=== PATIENT | female | born 1980 | race Caucasian/White ===

== ENCOUNTER 2018-06-30 05:45 | Emergency (ER) | payer OTHER ==
[~2018-06-30] VITALS: Ht 170.2 cm; Wt 56.8 kg
[2018-06-30] MEDS ORDERED: LEVALBUTEROL (NEB) 1.25 MG/0.5 ML AMP INH STA (05:51)
[2018-06-30] MEDS ORDERED: IPRATROPIUM (NEB) 0.5 MG/2.5 ML AMP INH STA (05:51)
[2018-06-30 05:52] VITALS: Ht 170.2 cm; Wt 56.8 kg
--- NOTE | 2018-06-30 06:08 | ERD ---
ER Documentation Chief Complaint Chief Complaint BIB RA39 for SOB HPI 38-year-old female with a history of asthma, occasional ED visits but no admissions or intubations presents to the ED by rescue ambulance complaining of a 1 day history of nonspecific URI symptoms with rhinorrhea, productive cough, body aches, chest tightness, shortness of breath and wheezing. No palpitations. No abdominal pain, nausea, vomiting, diarrhea or constipation. Denies leg pain or swelling. No headache, neck or back pain. No dysuria or polyuria. Subjective fevers but no chills. ROS All systems reviewed and are negative except as per history of present illness. Medications Home Meds Active Scripts Prednisone* (Prednisone*) 20 Mg Tab, 40 MG PO DAILY for 5 Days, #5 TAB Prov:DELROY RAJAN MD 06/30/18 Allergies Allergies: Coded Allergies: No Known Allergy (Unverified , 06/30/18) PMhx/Soc Reviewed in chart. As per HPI. History of Surgery: No Anesthesia Reaction: No Hx Neurological Disorder: No Hx Respiratory Disorders: Yes (Asthma) Hx Cardiac Disorders: No Hx Psychiatric Problems: No Hx Miscellaneous Medical Probl: No Hx Alcohol Use: Yes (once in a while) Hx Substance Use: No Hx Tobacco Use: No Smoking Status: Never smoker FmHx No sudden cardiac or cancer Physical Exam Vitals Temp: 98.3. Blood pressure: 125/90. Pulse: 107. Respirations: 25. O2 saturation 100% on high flow oxygen. Physical Exam Const: No acute distress Head: Atraumatic Eyes: Normal Conjunctiva ENT: Normal External Ears, Nose and Mouth. Neck: Full range of motion. No meningismus. Resp: Clear to auscultation bilaterally Cardio: Regular rate and rhythm, no murmurs Abd: Soft, non tender, non distended. Normal bowel sounds Skin: No petechiae or rashes Back: No midline or flank tenderness Ext: No cyanosis, or edema Neur: Awake and alert Psych: Normal Mood and Affect Results 24 hrs Laboratory Tests Test 06/30/18 05:50 06/30/18 05:51 06/30/18 06:10 06/30/18 09:11 POC Venous 2.7 mmol/L 3.8 mmol/L Lactate Blood Gas Blood arterial Specimen Source Arterial Blood 06/30/2018 6:22 Date Drawn :16 AM Arterial Blood 7.426 pH (Temp corrected ) Arterial Blood 30.3 mmhg pCO2 (Temp correct) Arterial Blood 208.2 mmHG pO2 (Temp corrected ) Arterial Blood 19.5 mmol/L HCO3 Arterial Blood -3.8 mmol/L Base Excess Arterial Blood 99.2 mmHG Oxygen Saturati on Christiano Test ACCEPTAB Arterial Blood Right Radial Gas Puncture Site Arterial 0.3 % Blood Carboxyhe moglobin Arterial Blood 0.2 % Methemoglobin Blood Gas A-a 35.0 mmHg O2 Differential Oxyhemoglobin 98.7 % Percent Blood Gas 37.0 C Temperature Blood Gas NASAL CANNULA Modality FiO2 39.0 % Blood Gas Notified Whom Blood Gas 06/30/2018 6:30 Notified Time :53 AM White Blood 12.3 10^3/ul Count Red Blood Count 4.40 10^6/ul Hemoglobin 13.3 g/dl Hematocrit 39.5 % Mean 89.8 fl Corpuscular Volume Mean 30.2 pg Corpuscular Hemoglobin Mean 33.7 g/dl Corpuscular Hemoglobin Conc ent Red Cell 12.7 % Distribution Width Platelet Count 224 10^3/UL Mean Platelet 10.8 fl Volume Immature 0.200 % Granulocytes % Neutrophils % 78.5 % Lymphocytes % 10.5 % Monocytes % 4.0 % Eosinophils % 6.3 % Basophils % 0.5 % Nucleated Red 0.0 /100WBC Blood Cells % Immature 0.030 10^3/ul Granulocytes # Neutrophils # 9.6 10^3/ul Lymphocytes # 1.3 10^3/ul Monocytes # 0.5 10^3/ul Eosinophils # 0.8 10^3/ul Basophils # 0.1 10^3/ul Nucleated Red 0.0 10^3/ul Blood Cells # Sodium Level 142 mmol/L Potassium Level 3.0 mmol/L Chloride Level 108 mmol/L Carbon Dioxide 22 mmol/L Level Anion Gap 12 Blood Urea 14 mg/dl Nitrogen Creatinine 0.60 mg/dl Est Glomerular > 60 mL/min Filtrat Rate mL/min Glucose Level 159 mg/dl Calcium Level 8.8 mg/dl Test 06/30/18 09:38 06/30/18 10:30 06/30/18 11:10 Lactic Acid 4.4 mmol/L 5.0 mmol/L Level Urine Color COLORLESS Urine Clarity CLEAR Urine pH 5.0 Urine Specific 1.002 [place] Urine Ketones NEGATIVE mg/dL Urine Nitrite NEGATIVE mg/dL Urine Bilirubin NEGATIVE mg/dL Urine NEGATIVE mg/dL Urobilinogen Urine Leukocyte NEGATIVE Gerardo/ul Esterase Urine NEGATIVE mg/dL Hemoglobin Urine Glucose 1+ mg/dL Urine Total NEGATIVE mg/dl Protein Current Medications Medications Dose Sig/Aurelia Start Time Status Last (Trade) Ordered Route PRN Stop Time Admin Dose Reason Admin 5 mg ONCE STAT 06/30/18 DC 06/30/18 Levalbuterol INH 05:51 05:58 (Xopenex 06/30/18 Neb) 05:52 Ipratropium 1 mg ONCE STAT 06/30/18 DC 06/30/18 [place] INH 05:51 05:57 (Atrovent 06/30/18 0.02% 05:52 (Neb)) 125 mg ONCE STAT 06/30/18 DC 06/30/18 Methylprednis IV 06:14 06:19 olone Sodium 06/30/18 Succinate 06:16 (Solu-Medrol) Albuterol 15 mg ONCE STAT 06/30/18 DC 06/30/18 (Proventil INH 06:14 07:48 0.5% (Neb)) 06/30/18 06:16 Sodium 1,700 ml BOLUS OVER 2 06/30/18 DC 06/30/18 Chloride HOURS STAT 06:14 06:19 (NS) IV* 06/30/18 06:16 Potassium 40 meq ONCE ONCE 06/30/18 DC 06/30/18 Chlor[place] PO 07:30 07:39 (Potassium 06/30/18 Chloride 07:50 Pwd/Soln) Sodium 1,700 ml BOLUS OVER 2 06/30/18 DC 06/30/18 Chloride HOURS STAT 09:18 09:33 (NS) IV* 06/30/18 09:20 Ondansetron 4 mg BRIDGE ORDER 06/30/18 DC HCl (Zofran PRN IV 14:00 Inj) NAUSEA AND/OR 06/30/18 VOMITING 15:46 650 mg ER BRIDGE 06/30/18 DC Acetaminophen PRN PO MILD 14:00 (Tylenol PAIN(1-3)OR 06/30/18 Tab) ELEVATED TEMP 15:46 Procedures/MDM DOCUMENTS REVIEWED: ED nurse, EMS report, no prior records EKG: Time: 52. Sinus tachycardia. Ventricular rate 106. Normal NV and QRS. No ST segment elevation or depression. No ectopy. My Interpretation IMAGING: Chest AP portable. Cardiac silhouette is normal. The costophrenic angles are clear. No mediastinal widening. No effusions or infiltrates. My interpretation. REEXAMINATION/REEVALUATION: Time: 06:30. Patient reports ongoing shortness of breath. Increasing breath sounds with mild residual expiratory wheezing. CRITICAL CARE TIME: Due to the high probability of sudden clinically significant respiratory and hemodynamic deterioration, this patient with shortness of breath during acute asthma exacerbation required multiple, frequent reevaluations of vital signs and response to therapy. Additional critical care time was spent in obtaining supplemental history from EMS, interpretation of relevant clinical data including labs, x-ray and EKG. TOTAL CRITICAL CARE TIME: 35 minutes not including other separately reportable procedures. MEDICAL DECISION MAKIN-year-old female with a history of asthma, occasional ED visits but no admissions or intubations presents to the ED by rescue ambulance complaining of a 1 day history of nonspecific URI symptoms with rhinorrhea, productive cough, body aches, chest tightness, shortness of breath and wheezing. CBC significant for mild leukocytosis but no anemia or thrombocytopenia. Chemistry reveals hypokalemia but no renal insufficiency or hyperglycemia. EKG shows sinus tachycardia but no ischemic changes or ectopy. Chest x-ray without infiltrate, effusion or signs of pneumonia or congestive heart failure. Patient presents with acute asthma exacerbation likely secondary to nonspecific viral URI, resolved with nebulized beta agonists and intravenous corticosteroids. Chest tightness which is typical of her asthma exacerbation. No radiographic evidence of pneumonia or pneumothorax. Low risk for pulmonary embolism. Acute coronary syndrome is unlikely. Heart score is 0. Patient observed in the ED for over 5 hours. Increasing lactic acidosis despite normal saline 30 cc fluid bolus x2, likely secondary to acute asthma exacerbation. Systemic inflammatory response syndrome but no source of infection hence an tibiotics are not administered. Influenza is negative. Considering the patient's rising lactic acid admission for further evaluation and management is advised. Care was transferred to Dr. Rajan at 14:45. Departure Diagnosis: Primary Impression: Shortness of breath Additional Impressions: Acute asthma exacerbation Asthma severity: moderate Asthma persistence: unspecified Qualified Codes: J45.901 - Unspecified asthma with (acute) exacerbation Lactic acidosis Nonspecific syndrome suggestive of viral illness Condition: Serious HERNANDEZ COTTRELL MD Jun 30, 2018 06:08
[2018-06-30] MEDS ORDERED: SODIUM CHLORIDE 0.9% 1L BAG IV* STA ×2 (06:14→09:18)
[2018-06-30] MEDS ORDERED: METHYLPREDNISOLONE 125 MG INJ IV STA (06:14)
[2018-06-30] MEDS ORDERED: ALBUTEROL 0.5% (NEB) 2.5 MG/0.5 ML AMP INH STA (06:14)
[2018-06-30] MEDS ORDERED: POTASSIUM CHLORIDE 20 MEQ POWDER FOR ORAL SOLN PO ONE (07:30)
[2018-06-30] MEDS ORDERED: ONDANSETRON 4 MG INJ IV PRN (14:00)
[2018-06-30] MEDS ORDERED: ACETAMINOPHEN 325 MG TAB PO PRN (14:00)
[2018-06-30 14:51] VITALS: BP 118/71; PULSE 96; RESP 20
[2018-06-30] MEDS ORDERED: PRED20TA PO (14:59)
--- NOTE | 2018-06-30 15:03 | PDOCDIS ---
Discharge Instructions DIAGNOSIS Discharge Diagnosis Upper respiratory infection. Acute asthma exacerbation CONDITION [id number] Patient Condition: [id number] Good HOME CARE INSTRUCTIONS: [id number] Diet Instructions: [id number] Regular ACTIVITY: [id number] Activity Restrictions: [id number] No Restrictions FOLLOW UP/APPOINTMENTS Follow-up Plan 1. Take all medications as prescribed. 2. Finish a five day course of oral prednisone to reduce the risk of further exacerbation. 3. Continue to take albuterol inhaler as needed for shortness of breath. 4. See your primary care doctor in 1 week. 5. For worsening shortness of breath or cough that does not improve after inhaler, return to the emergency room. DELROY RAJAN MD Jun 30, 2018 15:03
--- NOTE | 2018-06-30 15:13 | CONS ---
Date/Time of Note Date/Time of Note DATE: 06/30/18 TIME: 15:03 Assessment/Plan Assessment/Plan Hospital Course In the emergency room she was tachy to 110s, saturating 95% on room air. She was given atrovent/xopinex at 6:00 then albuterol at 8:00. Also solumedrol IV. Chest XR was clear with no infiltrates. Flu swab negative. UA negative for infection. She was also hypokalemic to 3.0 and got PO replacement. Of note, her lactate was drawn on admission and uptrended to 5.0 at time of discharge. When I saw the patient around 14:00 she was walking, breathing comfortably on room air, and politely requested to go home. Assessment/Plan 38 yo woman with acute asthma exacerbation. #Asthma exacerbation - s/p JOSELO and antimuscarininc. - IV solumdrol in ED, will prescribe 5 day course of prednisone 40 mg daily. - Gave patient return precautions for ED. #Lactic acidosis - Lactic acid >2 on admission and uptrended to 5 in the ED. - There is no evidence of sepsis from a bacterial infection: CXR clear of infiltrates, she has no dysuria, no fevers, she does have throat pain but CENTOR criteria is 0 meaning no workup for strep throat is indicated. - In the absence of sepsis, the prognostic value of lactate is unclear. - Given her reassuring history and exam, I believe this patient is appropriate for discharge with strict return instructions if her condition worsens. Result Diagram: 06/30/18 0610 06/30/18 0610 Consultation Date/Type/Reason Admit Date/Time Jun 30, 2018 Date of Consultation: Jun 30, 2018 Type of Consult Internal Medicine Reason for Consultation Acute asthma exacerbation Requesting Provider: HERNANDEZ COTTRELL MD Hx of Present Illness Ms. Nazario is a 38 yo woman with asthma who presents with acute exacerbation. She was in her usual state of health until yesterday; when she developed dry cough and chills. Her children have been sick with what sounds like an upper respiratory infection. She also had nausea and anorexia and sore throat. Last night she woke up coughing with shortness of breath, she used her inhaler 6 t imes but with no relief of dyspnea. So she presented to ED. She was diagnosed with asthma about 4-6 years ago and is on albuterol inhaler prn. She takes it very rarely. Last exacerbation was in July this year, she presented to the emergency room but was not admitted. Has never required intubation. Denies fever, headache, dizziness, vision changes, productive cough, chest pain/pressure/palpitations, abdominal pain, vomiting, diarrhea, constipation, dysuria, hematuria, urinary frequency. Past Medical History Asthma x4-6 years on prn albuterol Medications Current Medications Ondansetron HCl (Zofran Inj) 4 mg BRIDGE ORDER PRN IV NAUSEA AND/OR VOMITING; Start 06/30/18 at 14:00; Stop 07/01/18 at 13:59 Acetaminophen (Tylenol Tab) 650 mg ER BRIDGE PRN PO MILD PAIN(1-3)OR ELEVATED TEMP; Start 06/30/18 at 14:00; Stop 07/01/18 at 13:59 Allergies: Coded Allergies: No Known Allergy (Unverified , 06/30/18) Past Surgical History C section x1 Family History Significant Family History: no pertinent family hx Social History Alcohol Use: occasionally Smoking Status: Never smoker Drug Use: none Exam/Review of Systems Vital Signs Vitals Vital Signs Date Temp Pulse Resp B/P (MAP) Pulse Ox O2 O2 Flow FiO2 Time Delivery Rate 06/30/18 96 20 118/71 97 Room Air 14:51 (87) 06/30/18 98.6 09:21 06/30/18 21 07:48 Exam Gen: Well appearing woman breathing comfortably on room air. Eyes: PERRL, no icterus HEENT: Clear oropharynx, no pharyngeal erythema, exudates; no tonsillar swelling. Neck: Tender anteriorly. No palpable lymphadenopathy Card: Tachy, regular rhythm, no murmurs Pulm: Clear to auscultation bilaterally. Abd: Soft, nontender, nondistended. Ext: No cyanosis/clubbing/edema. Skin: warm, dry, well perfused. Medications Medications Current Medications Ondansetron HCl (Zofran Inj) 4 mg BRIDGE ORDER PRN IV NAUSEA AND/OR VOMITING; Start 06/30/18 at 14:00; Stop 07/01/18 at 13:59 Acetaminophen (Tylenol Tab) 650 mg ER BRIDGE PRN PO MILD PAIN(1-3)OR ELEVATED TEMP; Start 06/30/18 at 14:00; Stop 07/01/18 at 13:59 DELROY RAJAN MD Jun 30, 2018 15:13
== END 2018-06-30 15:46 | disposition home or self-care (01) ==
LOC: E/R 05:45 → CANBEDREQ 13:45 → E/R 15:46
DX: E87.2 Acidosis (principal)
CPT/HCPCS: 36600; 71045; 80048; 81003; 82803; 83605; 85025; 87400; 93005; 94644; 94645; 96374; 99291; J2930; J7030